=== PATIENT | male | born 1990 | race Hispanic/Latino ===

== ENCOUNTER 2019-01-15 19:29 | Emergency (ER) | payer BC ==
[~2019-01-15] VITALS: Ht 175.3 cm; Wt 82.2 kg
== END 2019-01-15 20:36 | disposition left against medical advice (07) ==
LOC: FSED 19:29
DX: R11.2 Nausea with vomiting, unspecified (principal)

== ENCOUNTER 2020-01-20 00:13 | Emergency (ER) | payer BC ==
[~2020-01-20] VITALS: Ht 175.3 cm; Wt 85.7 kg
--- NOTE | 2020-01-20 00:42 | Emergency Department Note ---
History of Present Illnes History of Present Illness Chief Complaint: Chest Pain History of Present Illness This is a 29 year old male brought in by [facility] for c/o chest pain that started about 2 hours ago. Patient states he has been having chest pain intermittently for about a year. Patient states he has had about 6 beers tonight. Patient states he tested positive for covid about 2 weeks ago . 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 Arrival Mode: [facility] Additional Treatment QM NURSE: 325 ASA; 1 nitro spray Onset (how long ago): hour(s) (2) Radiation: Reports non-radiation Severity: moderate Onset quality: sudden Duration (how long): hour(s) (2) Timing of current episode: constant Progression: unchanged Chronicity: recurrent (FOR ABOUT A YEAR) Context: Denies recent illness, Denies recent surgery Relieving factors: none Exacerbating factors: none Associated symptoms: Reports denies other symptoms Treatments prior to arrival: none Past Medical/Family History Physician Review I have reviewed the patient's past medical and family history. Any updates have been documented here. Past Medical History Recent Fever: No Clinical Suspicion of Infectio: No New/Unexplained Change in Ment: No Past Medical History: None, Hypertension Past Surgical History: Hernia Repair Other Surgery: 2 hernia sx Social History Smoking Cessation: Current some day smoker Alcohol Use: Daily Any Illegal Drug Use: No Family History Family history of heart diseas: No Other family history HTN Other Last Tetanus: U Review of Systems Review of Systems Constitutional: Reports no symptoms EENTM: Reports no symptoms Cardiovascular: Reports as per HPI Respiratory: Reports no symptoms Gastrointestinal: Reports no symptoms Genitourinary: Reports no symptoms Musculoskeletal: Reports no symptoms Integumentary: Reports no symptoms Neurological: Reports no symptoms Psychological: Reports no symptoms Endocrine: Reports no symptoms Hematological/Lymphatic: Reports no symptoms Physical Exam Related Data Allergies: Coded Allergies: No Known Allergies (Unverified , 01/15/19) Triage Vital Signs Vital Signs Date Time Temp Pulse Resp B/P (MAP) Pulse Ox O2 Delivery O2 Flow Rate FiO2 01/20/20 00:13 98.2 103 20 148/101 97 Room Air Vital signs reviewed: Yes Physical Exam CONSTITUTIONAL Constitutional: Present well-developed, Present well-nourished; Absent distressed HENT HENT: Present normocephalic, Present atraumatic, Present oropharynx clear/moist, Present nose normal HENT L/R: Present left ext ear normal, Present right ext ear normal EYES Eyes: Reports PERRL, Reports conjunctivae normal NECK Neck: Present ROM normal PULMONARY Pulmonary: Present effort normal, Present breath sounds normal CARDIOVASCULAR Cardiovascular: Present regular rhythm, Present heart sounds normal, Present capillary refill normal, Present normal rate GASTROINTESTINAL Abdominal: Present soft, Present nontender, Present bowel sounds normal GENITOURINARY Genitourinary: Present exam deferred SKIN Skin: Present warm, Present dry MUSCULOSKELETAL Musculoskeletal: Present ROM normal NEUROLOGICAL Neurological: Present alert, Present oriented x 3, Present no gross motor or sensory deficits PSYCHOLOGICAL Psychological: Present mood/affect normal, Present judgement normal Results Laboratory Laboratory Laboratory Tests Test 01/20/20 00:30 White Blood Count 11.15 x10e3/uL (4.8-10.8) Red Blood Count 4.76 x10e6/uL (4.3-5.7) Hemoglobin 14.9 g/dL (14.0-18.0) Hematocrit 43.4 % (38.2-49.6) Mean Corpuscular Volume 91.2 fL (81-99) Mean Corpuscular Hemoglobin 31.3 pg (28-32) Mean Corpuscular Hemoglobin Concent 34.3 g/dL (31-35) Red Cell Distribution Width 13.6 % (11.7-14.4) Platelet Count 135 x10e3/uL (140-360) Neutrophils (%) (Auto) 58.4 % (38.7-80.0) Lymphocytes (%) (Auto) 29.1 % (18.0-39.1) Monocytes (%) (Auto) 9.6 % (4.4-11.3) Eosinophils (%) (Auto) 1.7 % (0.0-6.0) Basophils (%) (Auto) 0.8 % (0.0-1.0) Neutrophils # (Auto) 6.5 (2.1-6.9) Lymphocytes # (Auto) 3.2 (1.0-3.2) Monocytes # (Auto) 1.1 (0.2-0.8) Eosinophils # (Auto) 0.2 (0.0-0.4) Basophils # (Auto) 0.1 (0.0-0.1) Absolute Immature Granulocyte (auto 0.04 x10e3/uL (0-0.1) Sodium Level 140 mmol/L (136-145) Potassium Level 3.6 mmol/L (3.5-5.1) Chloride Level 100 mmol/L (98-107) Carbon Dioxide Level 24 mmol/L (22-29) Anion Gap 19.6 mmol/L (8-16) Blood Urea Nitrogen < 2 mg/dL (7-26) Creatinine 0.67 mg/dL (0.72-1.25) Estimat Glomerular Filtration Rate > 60 ML/MIN (60-) BUN/Creatinine Ratio 3 (6-25) Glucose Level 128 mg/dL (74-118) Calcium Level 9.5 mg/dL (8.4-10.2) Total Bilirubin 1.5 mg/dL (0.2-1.2) Aspartate Amino Transf (AST/SGOT) 201 IU/L (5-34) Alanine Aminotransferase (ALT/SGPT) 78 IU/L (0-55) Alkaline Phosphatase 85 IU/L (40-150) Creatine Kinase 163 IU/L (30-200) Creatine Kinase MB 0.80 ng/mL (0-5.0) Troponin I 0.009 ng/mL (0-0.300) Total Protein 9.3 g/dL (6.5-8.1) Albumin 4.9 g/dL (3.5-5.0) Globulin 4.4 g/dL (2.3-3.5) Albumin/Globulin Ratio 1.1 (0.8-2.0) Amylase Level 109 U/L (25-125) Lipase 70 U/L (8-78) Lab results reviewed: Yes Imaging Imaging results reviewed: Yes Impressions Procedure: [id number] DX/CHEST SINGLE (PORTABLE) Exam Date: 01/20/20 Exam Time: 0350 REPORT STATUS: Signed Examination: Single AP view of the chest. COMPARISON: None. INDICATION: Chest pain, COVID + IMPRESSION: 1. Lines and Tubes: None 2. Lungs are grossly clear. No consolidation or effusion. 3. Cardiomediastinal silhouette is normal. Pulmonary vasculature is normal. 4. No acute bony abnormalities. Signed by: Dr. Radha Matias M.D. on 01/20/2020 4:24 AM Dictated By: RADHA MATIAS MD 3 Transcribed By: GARRISON on 01/20/20423 Procedures 12 Lead ECG Interpretation ECG Interpretation : ECG: ECG 1 Three Dimensional Map Modeler: Interpreted by ED physician Date: Jan 20, 2020 Time: 00:21 Rhythm: sinus rhythm Rate: normal BPM: 79 QRS axis: normal ST segments normal: Yes T waves normal: Yes Other findings: LVH Clinical Impression: non-specific ECG Assessment & Plan Medical Decision Making [facility] PT WITH CHEST PAIN THAT HAD BEEN INTERMITTENT FOR A YEAR CBC, CMP, CARDIAC ENZYMES, EKG, CXR, AMYLASE, LIPASE ORDERED TO EVAL FOR MYOCARDIAL INFARCTION, PANCREATITIS, ELEVATED LFT'S, ELECTROLYTE ABNORMALITY Assessment & Plan Final Impression: (1) Chest pain Depart Disposition: HOME, SELF-CARE Last Vital Signs Date Time Temp Pulse Resp B/P (MAP) Pulse Ox O2 Delivery O2 Flow Rate FiO2 01/20/20 00:13 98.2 103 20 148/101 97 Room Air PATRICK MARQUEZ MD Jan 20, 2020 00:42
[2020-01-20 00:49] LABS: BASOPHILS # (AUTO) 0.1 (0.0-0.1); BASOPHILS % 0.8 % (0.0-1.0); EOSINOPHILS # (AUTO) 0.2 (0.0-0.4); EOSINOPHILS % 1.7 % (0.0-6.0); HEMATOCRIT 43.4 % (38.2-49.6); HEMOGLOBIN 14.9 g/dL (14.0-18.0); LYMPHOCYTES # (AUTO) 3.2 (1.0-3.2); LYMPHOCYTES % 29.1 % (18.0-39.1); MEAN CORPUSCULAR HEMOGLOBIN 31.3 pg (28-32); MEAN CORPUSCULAR HGB CONC 34.3 g/dL (31-35); MEAN CORPUSCULAR VOLUME 91.2 fL (81-99); MONOCYTES # (AUTO) 1.1 (0.2-0.8); MONOCYTES % 9.6 % (4.4-11.3); NEUTROPHILS # (AUTO) 6.5 (2.1-6.9); NEUTROPHILS % 58.4 % (38.7-80.0); PLATELET COUNT 135 x10e3/uL (140-360); RED BLOOD COUNT 4.76 x10e6/uL (4.3-5.7); RED CELL DISTRIBUTION WIDTH 13.6 % (11.7-14.4)
[2020-01-20 01:11] LABS: ALANINE AMINOTRANSFERASE 78 IU/L (0-55); ALBUMIN 4.9 g/dL (3.5-5.0); ALBUMIN/GLOBULIN RATIO 1.1 (0.8-2.0); ALKALINE PHOSPHATASE 85 IU/L (40-150); ANION GAP 19.6 mmol/L (8-16); CALCIUM 9.5 mg/dL (8.4-10.2); CARBON DIOXIDE 24 mmol/L (22-29); CHLORIDE 100 mmol/L (98-107); CREATINE KINASE 163 IU/L (30-200); CREATININE, SERUM 0.67 mg/dL (0.72-1.25); EST GLOMERULAR FILTRATION RATE > 60 ML/MIN (60-); GLUCOSE 128 mg/dL (74-118); POTASSIUM 3.6 mmol/L (3.5-5.1); SODIUM 140 mmol/L (136-145)
[2020-01-20 01:32] LABS: BLOOD UREA NITROGEN < 2 mg/dL (7-26); BUN/CREATININE RATIO 3 (6-25)
[2020-01-20 01:36] LABS: AMYLASE 109 U/L (25-125); LIPASE 70 U/L (8-78)
--- NOTE | 2020-01-20 04:28 | Diagnostic Imaging Report ---
Examination: Single AP view of the chest. COMPARISON: None. INDICATION: Chest pain, COVID + IMPRESSION: 1. Lines and Tubes: None 2. Lungs are grossly clear. No consolidation or effusion. 3. Cardiomediastinal silhouette is normal. Pulmonary vasculature is normal. 4. No acute bony abnormalities. Signed by: Dr. Kenrick Adams M.D. on 01/20/2020 4:24 AM
[2020-01-20 04:44] VITALS: BP 122/82
--- NOTE | 2020-01-20 04:55 | NUR ---
Patient states he is going to call his to pick him up. Patient instructed he cannot walk home. Patient verbalized understanding. Patient on phone at this time calling someone to pick him up.
== END 2020-01-20 04:56 | disposition home or self-care (01) ==
LOC: ER 00:23
DX: R07.9 Chest pain, unspecified (principal); I10 Essential (primary) hypertension; F17.210 Nicotine dependence, cigarettes, uncomplicated
CPT/HCPCS: 36415; 71045; 80053; 82150; 82550; 82553; 83690; 84484; 85025; 93005; 99284

== ENCOUNTER 2020-02-04 10:07 | Emergency (ER) | payer BC ==
[~2020-02-04] VITALS: Ht 175.3 cm; Wt 85.7 kg
[2020-02-04 11:05] LABS: BASOPHILS # (AUTO) 0.1 (0.0-0.1); BASOPHILS % 0.8 % (0.0-1.0); EOSINOPHILS # (AUTO) 0.1 (0.0-0.4); EOSINOPHILS % 0.5 % (0.0-6.0); HEMOGLOBIN 14.7 g/dL (14.0-18.0); LYMPHOCYTES # (AUTO) 1.5 (1.0-3.2); LYMPHOCYTES % 13.6 % (18.0-39.1); MEAN CORPUSCULAR HEMOGLOBIN 31.3 pg (28-32); MEAN CORPUSCULAR HGB CONC 34.2 g/dL (31-35); MEAN CORPUSCULAR VOLUME 91.5 fL (81-99); MONOCYTES # (AUTO) 1.2 (0.2-0.8); MONOCYTES % 10.9 % (4.4-11.3); NEUTROPHILS # (AUTO) 8.1 (2.1-6.9); NEUTROPHILS % 73.9 % (38.7-80.0); PLATELET COUNT 173 x10e3/uL (140-360); RED CELL DISTRIBUTION WIDTH 14.2 % (11.7-14.4)
--- NOTE | 2020-02-04 11:16 | Emergency Department Note ---
History of Present Illnes History of Present Illness Chief Complaint: Respiratory History of Present Illness This is a 29 year old male presents to the ER via ems due to shortness of breath and palpitations that he has had for 2 days. Patient was seen at another facility for same complaint and was discharged and told to follow up with PCP. Per ems patient also had an episode of nausea en route.. 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 Any updates have been documented here. Past Medical History Recent Fever: No Clinical Suspicion of Infectio: No New/Unexplained Change in Ment: No Past Medical History: None, Hypertension Past Surgical History: Hernia Repair Other Surgery: 2 hernia sx Social History Smoking Cessation: Never Smoker Counseling Performed: No Alcohol Use: Daily Any Illegal Drug Use: No Physically hurt or threatened: No Other Last Tetanus: U Any Pre-Existing Lines (PICC,: No Review of Systems Review of Systems Constitutional: Reports no symptoms EENTM: Reports no symptoms Cardiovascular: Reports no symptoms, Reports palpitations Respiratory: Reports no symptoms, Reports dyspnea Gastrointestinal: Reports no symptoms Genitourinary: Reports no symptoms Musculoskeletal: Reports no symptoms Integumentary: Reports no symptoms Neurological: Reports no symptoms Psychological: Reports no symptoms Endocrine: Reports no symptoms Hematological/Lymphatic: Reports no symptoms Review of other systems: All other systems negative Physical Exam Related Data Allergies: Coded Allergies: No Known Allergies (Unverified , 01/15/19) Triage Vital Signs Vital Signs Date Time Temp Pulse Resp B/P (MAP) Pulse Ox O2 Delivery O2 Flow Rate FiO2 02/04/20 10:27 98.8 96 20 150/98 98 Room Air Physical Exam CONSTITUTIONAL Constitutional: Present well-developed, Present well-nourished HENT HENT: Present normocephalic, Present atraumatic, Present oropharynx clear/moist, Present nose normal HENT L/R: Present left ext ear normal, Present right ext ear normal EYES Eyes: Reports PERRL, Reports conjunctivae normal NECK Neck: Present ROM normal PULMONARY Pulmonary: Present effort normal, Present breath sounds normal CARDIOVASCULAR Cardiovascular: Present regular rhythm, Present heart sounds normal, Present capillary refill normal, Present normal rate GASTROINTESTINAL Abdominal: Present soft, Present nontender, Present bowel sounds normal GENITOURINARY Genitourinary: Present exam deferred SKIN Skin: Present warm, Present dry MUSCULOSKELETAL Musculoskeletal: Present ROM normal NEUROLOGICAL Neurological: Present alert, Present oriented x 3, Present no gross motor or sensory deficits PSYCHOLOGICAL Psychological: Present mood/affect normal, Present judgement normal Results Laboratory Laboratory Laboratory Tests Test 02/04/20 10:45 Lab results reviewed: Yes Imaging Imaging results reviewed: Yes Diagnostics Tests Diagnostic test(s) reviewed: Yes Assessment & Plan Medical Decision Making MDM 29-year-old male presents for palpitations and shortness of breath. This is his second visit for this. Examination shows an overall well-appearing male in no acute distress, vital signs stable and within acceptable limits. Initial differential significant for palpitations versus pneumonia versus viral illness. He has no significant cardiac risk factors. Laboratory workup is largely unremarkable. Patient does state he drinks 4 16 ounce cans of beer a day and this only happens once he stops drinking. Discussed decreasing the amount he drinks and to follow-up with alcohol detox facilities. Information on these were given to him. He does not wish to be admitted for alcohol detoxification this time. Return precautions were discussed and I doubt emergent process causing his symptoms and he is appropriate for discharge. Part of this note was dictated with Harjinder and is subject some occasional voice recognition errors. Reassessment Reassessment time: 16:30 Assessment & Plan Final Impression: (1) Chest pain Depart Disposition: HOME, SELF-CARE Last Vital Signs Date Time Temp Pulse Resp B/P (MAP) Pulse Ox O2 Delivery O2 Flow Rate FiO2 02/04/20 10:27 98.8 96 20 150/98 98 Room Air Guille Conklin MD Feb 04, 2020 11:16
[2020-02-04 11:23] LABS: ALANINE AMINOTRANSFERASE 57 IU/L (0-55); ALBUMIN 4.4 g/dL (3.5-5.0); ALKALINE PHOSPHATASE 84 IU/L (40-150); ANION GAP 19.6 mmol/L (8-16); BLOOD UREA NITROGEN < 5 mg/dL (7-26); CALCIUM 9.1 mg/dL (8.4-10.2); CARBON DIOXIDE 23 mmol/L (22-29); CHLORIDE 100 mmol/L (98-107); CREATININE, SERUM 0.62 mg/dL (0.72-1.25); EST GLOMERULAR FILTRATION RATE > 60 ML/MIN (60-); GLUCOSE 132 mg/dL (74-118); POTASSIUM 3.6 mmol/L (3.5-5.1); SODIUM 139 mmol/L (136-145)
[2020-02-04 11:26] LABS: BUN/CREATININE RATIO 8 (6-25)
[2020-02-04 11:54] LABS: THYROID STIMULATING HORMONE 1.488 uIU/mL (0.350-4.940)
--- NOTE | 2020-02-04 12:27 | Diagnostic Imaging Report ---
EXAMINATION: CHEST 2 VIEWS INDICATION: Shortness of breath, chest pain COMPARISON: Chest radiograph 01/20/2020 FINDINGS: LINES/TUBES:EKG leads overlie the chest. LUNGS:The lungs are well-inflated. No focal consolidation or pulmonary edema. PLEURA:No pleural effusion or pneumothorax. MEDIASTINUM:The cardiomediastinal silhouette appears normal in size and shape. BONES/SOFT TISSUES:No acute osseous injury. ABDOMEN:No free air under the diaphragm. IMPRESSION: No focal pneumonia or pulmonary edema. Signed by: Jose Oseguera MD on 02/04/2020 12:24 PM
[2020-02-04] MEDS ORDERED: POTASSIUM CHLORIDE 20MEQ/100ML 100 ML IV ONE (13:00)
[2020-02-04] MEDS ORDERED: POTASSIUM CHLORIDE 10MEQ EA PO ONE (13:00)
== END 2020-02-04 16:51 | disposition home or self-care (01) ==
LOC: ER 10:15
DX: R00.2 Palpitations (principal); R07.9 Chest pain, unspecified; R06.02 Shortness of breath; I10 Essential (primary) hypertension
CPT/HCPCS: 36415; 71046; 80053; 84443; 84484; 85025; 93005; 99284

== ENCOUNTER 2020-05-03 06:06 | Emergency (ER) | payer BC ==
[~2020-05-03] VITALS: Ht 175.3 cm; Wt 85.7 kg
[2020-05-03] MEDS ORDERED: OXYMETAZOLINE HCL 0.05% NAS 1 SPRAY BTL ONE ×2 (06:17→06:30)
[2020-05-03] MEDS ORDERED: LORAZEPAM INJ 2 MG/ML VIAL IV ONE (06:30)
[2020-05-03 06:34] LABS: BASOPHILS # (AUTO) 0.2 (0.0-0.1); EOSINOPHILS # (AUTO) 0.4 (0.0-0.4); EOSINOPHILS % 2.7 % (0.0-6.0); HEMATOCRIT 42.2 % (38.2-49.6); HEMOGLOBIN 14.2 g/dL (14.0-18.0); LYMPHOCYTES # (AUTO) 1.3 (1.0-3.2); LYMPHOCYTES % 8.4 % (18.0-39.1); MEAN CORPUSCULAR HEMOGLOBIN 32.7 pg (28-32); MEAN CORPUSCULAR HGB CONC 33.6 g/dL (31-35); MEAN CORPUSCULAR VOLUME 97.2 fL (81-99); MONOCYTES # (AUTO) 1.6 (0.2-0.8); MONOCYTES % 10.1 % (4.4-11.3); NEUTROPHILS # (AUTO) 11.8 (2.1-6.9); NEUTROPHILS % 77.4 % (38.7-80.0); PLATELET COUNT 154 x10e3/uL (140-360); RED BLOOD COUNT 4.34 x10e6/uL (4.3-5.7); RED CELL DISTRIBUTION WIDTH 13.3 % (11.7-14.4)
[2020-05-03] MEDS ORDERED: LORAZEPAM INJ 2 MG/ML VIAL ONE (06:35)
[2020-05-03 06:44] LABS: INR 1.29; PROTHROMBIN TIME 16.7 seconds (11.9-14.5)
[2020-05-03 06:45] LABS: PARTIAL THROMBOPLASTIN TIME 39.4 seconds (23.8-35.5)
[2020-05-03 06:51] LABS: ALANINE AMINOTRANSFERASE 41 IU/L (0-55); ALBUMIN 4.4 g/dL (3.5-5.0); ALKALINE PHOSPHATASE 102 IU/L (40-150); ANION GAP 17.8 mmol/L (8-16); BLOOD UREA NITROGEN 5 mg/dL (7-26); BUN/CREATININE RATIO 8 (6-25); CALCIUM 9.1 mg/dL (8.4-10.2); CARBON DIOXIDE 24 mmol/L (22-29); CHLORIDE 99 mmol/L (98-107); CREATININE, SERUM 0.66 mg/dL (0.72-1.25); EST GLOMERULAR FILTRATION RATE > 60 ML/MIN (60-); GLUCOSE 153 mg/dL (74-118); POTASSIUM 3.8 mmol/L (3.5-5.1); SODIUM 137 mmol/L (136-145)
--- NOTE | 2020-05-03 07:07 | Emergency Department Note ---
History of Present Illnes History of Present Illness Chief Complaint: Eye, Ear, Nose, Throat, Dental History of Present Illness This is a 29 year old male 29 y/o male pt presents to ED with nosebleed since approx 1999 last night; pts v/s/s; ER MD to triage for initial eval. 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 Arrival Mode: Car Textile Science Technician Required: No Onset (how long ago): hour(s) Location: right nare Quality: bleeding Radiation: Reports non-radiation Severity: moderate Onset quality: sudden Timing of current episode: intermittent Progression: waxing and waning Chronicity: new Context: Denies recent illness Relieving factors: none Exacerbating factors: none Associated symptoms: Reports denies other symptoms Treatments prior to arrival: none Past Medical/Family History Physician Review I have reviewed the patient's past medical and family history. Any updates have been documented here. Past Medical History Recent Fever: No Clinical Suspicion of Infectio: No New/Unexplained Change in Ment: No Past Medical History: None, Hypertension Past Surgical History: Hernia Repair Other Surgery: 2 hernia sx Social History Smoking Cessation: Current some day smoker Counseling Performed: Yes Alcohol Use: Daily Any Illegal Drug Use: No (denies) Physically hurt or threatened: No Family History Family history of heart diseas: No Other Last Tetanus: U Any Pre-Existing Lines (PICC,: No Review of Systems Review of Systems Constitutional: Reports no symptoms EENTM: Reports as per HPI, Reports other (nosebleed) Cardiovascular: Reports no symptoms Respiratory: Reports no symptoms Gastrointestinal: Reports no symptoms Genitourinary: Reports no symptoms Musculoskeletal: Reports no symptoms Integumentary: Reports no symptoms Neurological: Reports no symptoms Psychological: Reports no symptoms Endocrine: Reports no symptoms Hematological/Lymphatic: Reports no symptoms Physical Exam Related Data Allergies: Coded Allergies: No Known Allergies (Unverified , 01/15/19) Triage Vital Signs Vital Signs Date Time Temp Pulse Resp B/P (MAP) Pulse Ox O2 Delivery O2 Flow Rate FiO2 05/03/20 06:09 98.7 110 18 163/97 100 Room Air Vital signs reviewed: Yes Physical Exam CONSTITUTIONAL Constitutional: Present well-developed, Present well-nourished HENT HENT: Present normocephalic, Present atraumatic, Present nose normal, Present other (bilateral nare epistaxis, appears anterior but no definite site seen) HENT L/R: Present left ext ear normal, Present right ext ear normal EYES Eyes: Reports PERRL, Reports conjunctivae normal NECK Neck: Present ROM normal PULMONARY Pulmonary: Present effort normal, Present breath sounds normal CARDIOVASCULAR Cardiovascular: Present regular rhythm, Present heart sounds normal, Present capillary refill normal, Present normal rate GASTROINTESTINAL Abdominal: Present soft, Present nontender, Present bowel sounds normal GENITOURINARY Genitourinary: Present exam deferred SKIN Skin: Present warm, Present dry MUSCULOSKELETAL Musculoskeletal: Present ROM normal NEUROLOGICAL Neurological: Present alert, Present oriented x 3, Present no gross motor or sensory deficits PSYCHOLOGICAL Psychological: Present mood/affect normal, Present judgement normal Results Laboratory Result Diagram: 05/03/20 0610 Laboratory Laboratory Tests Test 05/03/20 06:10 White Blood Count 15.29 x10e3/uL (4.8-10.8) Red Blood Count 4.34 x10e6/uL (4.3-5.7) Hemoglobin 14.2 g/dL (14.0-18.0) Hematocrit 42.2 % (38.2-49.6) Mean Corpuscular Volume 97.2 fL (81-99) Mean Corpuscular Hemoglobin 32.7 pg (28-32) Mean Corpuscular Hemoglobin Concent 33.6 g/dL (31-35) Red Cell Distribution Width 13.3 % (11.7-14.4) Platelet Count 154 x10e3/uL (140-360) Neutrophils (%) (Auto) 77.4 % (38.7-80.0) Lymphocytes (%) (Auto) 8.4 % (18.0-39.1) Monocytes (%) (Auto) 10.1 % (4.4-11.3) Eosinophils (%) (Auto) 2.7 % (0.0-6.0) Basophils (%) (Auto) 1.0 % (0.0-1.0) Neutrophils # (Auto) 11.8 (2.1-6.9) Lymphocytes # (Auto) 1.3 (1.0-3.2) Monocytes # (Auto) 1.6 (0.2-0.8) Eosinophils # (Auto) 0.4 (0.0-0.4) Basophils # (Auto) 0.2 (0.0-0.1) Absolute Immature Granulocyte (auto 0.06 x10e3/uL (0-0.1) Prothrombin Time 16.7 seconds (11.9-14.5) Prothromb Time International Ratio 1.29 Activated Partial Thromboplast Time 39.4 seconds (23.8-35.5) Sodium Level 137 mmol/L (136-145) Potassium Level 3.8 mmol/L (3.5-5.1) Chloride Level 99 mmol/L (98-107) Carbon Dioxide Level 24 mmol/L (22-29) Anion Gap 17.8 mmol/L (8-16) Blood Urea Nitrogen 5 mg/dL (7-26) Creatinine 0.66 mg/dL (0.72-1.25) Estimat Glomerular Filtration Rate > 60 ML/MIN (60-) BUN/Creatinine Ratio 8 (6-25) Glucose Level 153 mg/dL (74-118) Calcium Level 9.1 mg/dL (8.4-10.2) Total Bilirubin 2.2 mg/dL (0.2-1.2) Aspartate Amino Transf (AST/SGOT) 114 IU/L (5-34) Alanine Aminotransferase (ALT/SGPT) 41 IU/L (0-55) Alkaline Phosphatase 102 IU/L (40-150) Total Protein 8.8 g/dL (6.5-8.1) Albumin 4.4 g/dL (3.5-5.0) Globulin 4.4 g/dL (2.3-3.5) Albumin/Globulin Ratio 1.0 (0.8-2.0) Laboratory Tests Test 05/03/20 06:10 White Blood Count 15.29 x10e3/uL (4.8-10.8) Red Blood Count 4.34 x10e6/uL (4.3-5.7) Hemoglobin 14.2 g/dL (14.0-18.0) Hematocrit 42.2 % (38.2-49.6) Mean Corpuscular Volume 97.2 fL (81-99) Mean Corpuscular Hemoglobin 32.7 pg (28-32) Mean Corpuscular Hemoglobin Concent 33.6 g/dL (31-35) Red Cell Distribution Width 13.3 % (11.7-14.4) Platelet Count 154 x10e3/uL (140-360) Neutrophils (%) (Auto) 77.4 % (38.7-80.0) Lymphocytes (%) (Auto) 8.4 % (18.0-39.1) Monocytes (%) (Auto) 10.1 % (4.4-11.3) Eosinophils (%) (Auto) 2.7 % (0.0-6.0) Basophils (%) (Auto) 1.0 % (0.0-1.0) Neutrophils # (Auto) 11.8 (2.1-6.9) Lymphocytes # (Auto) 1.3 (1.0-3.2) Monocytes # (Auto) 1.6 (0.2-0.8) Eosinophils # (Auto) 0.4 (0.0-0.4) Basophils # (Auto) 0.2 (0.0-0.1) Absolute Immature Granulocyte (auto 0.06 x10e3/uL (0-0.1) Prothrombin Time 16.7 seconds (11.9-14.5) Prothromb Time International Ratio 1.29 Activated Partial Thromboplast Time 39.4 seconds (23.8-35.5) Lab results reviewed: Yes Procedures Epistaxis Control Nostril: bilateral Nose prepped with: oxymetazoline Direct inspection: unable to visualize Inspection method: otoscope Clots removed by: blowing nose Epistaxis treatment: silver nitrate cautery (left nare only), nasal tampon (left nare only) Results of treatment: bleeding controlled Complications: none Assessment & Plan Medical Decision Making MDM epistaxis reportedly since 1999 last night in pt with EtOH abuse - check CBC, CHEM, PT/PTT - r/o anemia, thrombocytopenia, coagulopathy Reassessment Reassessment did Afrin bilat nares and pressure held for 15 mins. When i returned, pt had cloth at nare openings letting blood flow out. I again counseled on proper way to hold pressure, 2 squirts of Afrin each nostril and had him hold proper pressure for 20 mins. When I returned, he was still bleeding from left nare so I cauterized with Silver Nitrate and place 7.5 cm Ant Rhinorocket. Pt watched for 15 mins, he was then oozing from right nare, no bleeding from left nare (with Rhino-rocket in place). I then cauterized right nare with Silver Nitrate and place 7.5cm ant Rhino-rocket to right nare also. DC home, Augmentin, Tyl #3, F/U Dr Lopez or Dr Chavez, rted prn, establish PCP (gave Dr Dayton Barney #) Assessment & Plan Final Impression: (1) Epistaxis Depart Disposition: HOME, SELF-CARE Last Vital Signs Date Time Temp Pulse Resp B/P (MAP) Pulse Ox O2 Delivery O2 Flow Rate FiO2 05/03/20 06:09 98.7 110 18 163/97 100 Room Air Medications in the ED Oxymetazoline HCl 15 spray STK-MED ONCE .ROUTE ; Start 05/03/20 at 06:17; Stop 05/03/20 at 06:11; Status DC Oxymetazoline HCl 2 spray ONCE ONCE NA Last administered on 05/03/20at 06:25; Admin Dose 2 SPRAY; Start 05/03/20 at 06:30; Stop 05/03/20 at 06:31; Status DC Lorazepam 1 mg ONCE ONCE IV Last administered on 05/03/20at 06:34; Admin Dose 1 MG; Start 05/03/20 at 06:30; Stop 05/03/20 at 06:31; Status DC Lorazepam 2 mg STK-MED ONCE .ROUTE ; Start 05/03/20 at 06:35; Stop 05/03/20 at 06:29; Status DC AZIZA MALONEY MD May 03, 2020 07:06
[2020-05-03] MEDS ORDERED: SILVER NITRATE SWABS ONE (08:09)
[2020-05-03] MEDS ORDERED: SILVER NITRATE SWABS TOP ONE (08:15)
== END 2020-05-03 08:30 | disposition home or self-care (01) ==
LOC: ER 06:21
DX: R04.0 Epistaxis (principal); I10 Essential (primary) hypertension; F17.210 Nicotine dependence, cigarettes, uncomplicated
CPT/HCPCS: 30901; 36415; 80053; 85025; 85610; 85730; 99283; J2060

== ENCOUNTER 2020-05-03 16:18 | Emergency (ER) | payer BC ==
[~2020-05-03] VITALS: Ht 175.3 cm; Wt 85.7 kg
[2020-05-03] MEDS ORDERED: SODIUM CHLORIDE 0.9% 1000ML 1,000 ML IV STA (16:40)
[2020-05-03] MEDS ORDERED: MULTIVITAMINS- 12 INJECTION 10 ML, FOLIC ACID MDV 5 MG, THIAMINE HCL INJ 100 MG in SODI... IV ONE (16:45)
[2020-05-03] MEDS ORDERED: SODIUM CHLORIDE 0.9% 1000ML 1,000 ML IV SCH (16:45)
[2020-05-03] MEDS ORDERED: LORAZEPAM INJ 2 MG/ML VIAL IV NR (16:45)
[2020-05-03 17:02] LABS: BASOPHILS # (AUTO) 0.1 (0.0-0.1); BASOPHILS % 0.5 % (0.0-1.0); EOSINOPHILS % 0.1 % (0.0-6.0); HEMOGLOBIN 10.9 g/dL (14.0-18.0); LYMPHOCYTES # (AUTO) 0.7 (1.0-3.2); LYMPHOCYTES % 4.2 % (18.0-39.1); MEAN CORPUSCULAR HEMOGLOBIN 32.9 pg (28-32); MEAN CORPUSCULAR HGB CONC 34.1 g/dL (31-35); MEAN CORPUSCULAR VOLUME 96.7 fL (81-99); MONOCYTES # (AUTO) 1.3 (0.2-0.8); MONOCYTES % 7.7 % (4.4-11.3); NEUTROPHILS # (AUTO) 14.2 (2.1-6.9); PLATELET COUNT 148 x10e3/uL (140-360); RED BLOOD COUNT 3.31 x10e6/uL (4.3-5.7); RED CELL DISTRIBUTION WIDTH 13.2 % (11.7-14.4)
--- NOTE | 2020-05-03 17:56 | NUR ---
Patient leaving against medical advice, refusing Dr. Dailey to place another rhinorocket to his right nare after device to his left nare was replaced, patient states that he wants to go somewhere else where he does not need to be admitted, Dr. Dailey made pt aware that ENT has been made aware of his situation and has agreed to see him in the hospital while admitted, risk and benefits of being admitted VS leaving AMA explained to patient but pt is adamant that he does not want to stay, patient advised to go to [facility] if he wanted to be seen by an ENT on-call, Rhinorocket placed to left nare and gauze soaked with Afrin placed to right nare per patient's request which is easier for him to breath, patient is AAOX4, no distress noted, lab results were reviewed by EDP and patient made aware that his hemoglobin level has significantly decrease compared to his lab values this morning and will continue to decline and his condition could worsen that could eventually lead to possible , EDP explained to patient in length but patient states that he wants to leave against medical advice, IV X 2 removed, vital signs are as follows BP 124/91, RR 22, HR 138, O2 Saturation at 100% on Room Air
--- NOTE | 2020-05-03 18:21 | Emergency Department Note ---
History of Present Illnes History of Present Illness Chief Complaint: Eye, Ear, Nose, Throat, Dental History of Present Illness This is a 29 year old male pt came in via [facility] for c/o bilateral epistaxis, patient was seen earlier in the ED today for the same complaints and I placed rhino-rockets on both nares, pt states that he took both out because they were causing pain & he could not breath, vital signs WNL. 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 Any updates have been documented here. Past Medical History Recent Fever: No Clinical Suspicion of Infectio: No New/Unexplained Change in Ment: No Past Surgical History: Hernia Repair Other Surgery: 2 hernia sx Social History Smoking Cessation: Current some day smoker Counseling Performed: Yes Alcohol Use: Daily Any Illegal Drug Use: No TB Exposure/Symptoms: No Physically hurt or threatened: No Family History Family history of heart diseas: No Other Last Tetanus: U Any Pre-Existing Lines (PICC,: No Review of Systems Review of Systems Constitutional: Reports no symptoms EENTM: Reports as per HPI, Reports other (epistaxis) Cardiovascular: Reports no symptoms Respiratory: Reports no symptoms Gastrointestinal: Reports no symptoms Genitourinary: Reports no symptoms Musculoskeletal: Reports no symptoms Integumentary: Reports no symptoms Neurological: Reports no symptoms Psychological: Reports no symptoms Endocrine: Reports no symptoms Hematological/Lymphatic: Reports no symptoms Physical Exam Related Data Allergies: Coded Allergies: No Known Allergies (Unverified , 01/15/19) Triage Vital Signs Vital Signs Date Time Temp Pulse Resp B/P (MAP) Pulse Ox O2 Delivery O2 Flow Rate FiO2 05/03/20 16:23 98.7 124 18 156/95 99 Room Air Vital signs reviewed: Yes Physical Exam CONSTITUTIONAL Constitutional: Present well-developed, Present well-nourished HENT HENT: Present other (left nare with active oozing) HENT L/R: Present left ext ear normal, Present right ext ear normal EYES Eyes: Reports PERRL, Reports conjunctivae normal NECK Neck: Present ROM normal PULMONARY Pulmonary: Present effort normal, Present breath sounds normal CARDIOVASCULAR Cardiovascular: Present regular rhythm, Present heart sounds normal, Present capillary refill normal, Present normal rate GASTROINTESTINAL Abdominal: Present soft, Present nontender, Present bowel sounds normal GENITOURINARY Genitourinary: Present exam deferred SKIN Skin: Present warm, Present dry MUSCULOSKELETAL Musculoskeletal: Present ROM normal NEUROLOGICAL Neurological: Present alert, Present oriented x 3, Present no gross motor or sensory deficits PSYCHOLOGICAL Psychological: Present mood/affect normal, Present judgement normal Results Laboratory Result Diagram: 05/03/20 1600 Laboratory Laboratory Tests Test 05/03/20 16:00 White Blood Count 16.37 x10e3/uL (4.8-10.8) Red Blood Count 3.31 x10e6/uL (4.3-5.7) Hemoglobin 10.9 g/dL (14.0-18.0) Hematocrit 32.0 % (38.2-49.6) Mean Corpuscular Volume 96.7 fL (81-99) Mean Corpuscular Hemoglobin 32.9 pg (28-32) Mean Corpuscular Hemoglobin Concent 34.1 g/dL (31-35) Red Cell Distribution Width 13.2 % (11.7-14.4) Platelet Count 148 x10e3/uL (140-360) Neutrophils (%) (Auto) 87.0 % (38.7-80.0) Lymphocytes (%) (Auto) 4.2 % (18.0-39.1) Monocytes (%) (Auto) 7.7 % (4.4-11.3) Eosinophils (%) (Auto) 0.1 % (0.0-6.0) Basophils (%) (Auto) 0.5 % (0.0-1.0) Neutrophils # (Auto) 14.2 (2.1-6.9) Lymphocytes # (Auto) 0.7 (1.0-3.2) Monocytes # (Auto) 1.3 (0.2-0.8) Eosinophils # (Auto) 0.0 (0.0-0.4) Basophils # (Auto) 0.1 (0.0-0.1) Absolute Immature Granulocyte (auto 0.09 x10e3/uL (0-0.1) Lab results reviewed: Yes Procedures Epistaxis Control Time out performed: Yes Nostril: bilateral Nose prepped with: oxymetazoline Direct inspection: unable to visualize Inspection method: otoscope Clots removed by: blowing nose Epistaxis treatment: nasal tampon (5.5 cm anterior rhino-rocket placed) Results of treatment: bleeding controlled (on left, he then had some bleeding from right side but refused another rhino-rocket and he put guaze in nostril) Complications: pain, other (pt fighting with me placing left rhino-rocket, would not allow right side rhino-rocket) Assessment & Plan Medical Decision Making MDM repeat epistaxis after bilateral rhino-rockets placed this am, which he pulled out at home and then called 911 because he was bleeding again - will get repeat CBC, T&S - r/o drop in HgB/anemia, need for blood transfusion. I will replace rhino-rockets, place in hospital for pain control and monitor H/H, I spoke with Dr Lopez who will see pt in hospital. Reassessment Reassessment Pt refusing admission, refusing further care including Rhino-rocket in right nare. I explained that he has had a significant drop in HgB and continues to bleed and needs an ENT MD to scope and Dr Lopez will see in hospital here. He says he will go somewhere else - I then offered to transfer him elsewhere but does not want. He is being discharged from my care, I explained risks of leaving including loss of lifestyle, CO, cardiac arrest, blockage of airway from bleeding leading to resp arrest, . He understands and is still leaving despite my best efforts to care for him. I also explained he is welcome to return anytime for further care. Assessment & Plan Final Impression: (1) Epistaxis Depart Disposition: HOME, SELF-CARE Last Vital Signs Date Time Temp Pulse Resp B/P (MAP) Pulse Ox O2 Delivery O2 Flow Rate FiO2 05/03/20 16:23 98.7 124 18 156/95 99 Room Air Medications in the ED Sodium Chloride 1,000 ml @ 0 mls/hr Q0M STAT IV Last administered on 05/03/20at 17:11; Admin Dose 250 MLS/HR; Start 05/03/20 at 16:40; Stop 05/03/20 at 16:41; Status DC Sodium Chloride 1,000 ml @ 125 mls/hr Q8H IV ; Start 05/03/20 at 16:45; Stop 06/02/20 at 16:44 Multivitamins 10 ml/Folic Acid 5 mg/Thiamine HCl 100 mg/Sodium Chloride 1,012 ml @ 125 mls/hr Q8H6M ONCE IV Last administered on 05/03/20at 17:11; Admin Dose 125 MLS/HR; Start 05/03/20 at 16:45; Stop 05/04/20 at 00:50 Lorazepam 1 mg ONCE IV ; Start 05/03/20 at 16:45; Stop 05/03/20 at 17:59 AZIZA MALONEY MD May 03, 2020 18:21
== END 2020-05-03 18:00 | disposition home or self-care (01) ==
LOC: ER 16:23
DX: R04.0 Epistaxis (principal); Z11.59 Encounter for screening for other viral diseases; F17.210 Nicotine dependence, cigarettes, uncomplicated
CPT/HCPCS: 30901; 36415; 85025; 86850; 86900; 99284; J3411; J7030; U0002

== ENCOUNTER 2024-05-03 07:21 | Emergency (ER) | payer SELFPAY ==
[~2024-05-03] VITALS: Ht 175.3 cm; Wt 85.7 kg
[~2024-05-03 07:21] MED LIST: PENICILLIN V P500 MG PO
[2024-05-03 07:26] VITALS: PULSE 84; RESP 15; TEMP 99.1; O2SAT 99
[2024-05-03] MEDS ORDERED: LIDOCAINE 1% W/EPINEPHRINE 20 ML VIAL ONE (07:43)
[2024-05-03] MEDS ORDERED: BACTRIM DS TAB1 EACH PO (07:53)
[2024-05-03] MEDS: LIDOCAINE 1% W/EPINEPHRINE 20 ML VIAL INJ ONE (08:20)
== END 2024-05-03 08:40 | disposition home or self-care (01) ==
LOC: ER 07:32
DX: L98.8 Other specified disorders of the skin and subcutaneous tissue (principal); I10 Essential (primary) hypertension
CPT/HCPCS: 99283